=== PATIENT | male | born 1995 | race Caucasian/White ===

== ENCOUNTER 2019-04-26 05:32 | Inpatient (IN) | payer BC, SELFPAY ==
[2019-04-26] MEDS ORDERED: Clindamycin/D5W 900 mg/50 ml Premix Bag ONE (08:39)
[2019-04-26 09:08] LABS: #Basophils 0.1 thou/uL (0.0-0.2); #Eosinphils 0.2 thou/uL (0.0-0.7); #Lymphocytes 2.6 thou/uL (1.20-3.40); #Monocytes 0.9 thou/uL (0.11-0.59); #Neutrophils 7.7 thou/uL (1.40-6.50); %Basophils 0.6 % (0.0-1.0); %Eosinophils 1.9 % (0.0-10.0); %Lymphocytes 22.8 % (21.0-51.0); %Monocytes 7.7 % (0.0-10.0); Hemoglobin 16.1 g/dL (14.0-18.0); Mean Corpuscular HGB CONC 34.1 g/dL (32.0-36.0); Mean Corpuscular Hemoglobin 30.7 pg (27.0-31.0); Mean Platelet Volume 7.6 fL (7.4-10.4); Platelet Count 242 thou/uL (130-400); RBC Distribution Width 11.4 % (11.5-14.5); Red Blood Cell (RBC) Count 5.25 mill/uL (4.70-6.10); White Blood Cell (WBC) Count 11.4 thou/uL (4.8-10.8)
[2019-04-26 09:32] LABS: ALT (SGPT) 20 U/L (8-55); AST (SGOT) 20 U/L (5-34); Albumin 4.5 g/dL (3.5-5.0); Alkaline Phosphatase 102 U/L (40-110); Anion Gap 15 mmol/L (10-20); BUN (Urea Nitrogen) 12 mg/dL (8.9-20.6); Bilirubin, Total 0.3 mg/dL (0.2-1.2); Calc. Creatinine Clearance 0 mL/min (70-130); Calcium 10.1 mg/dL (7.8-10.44); Carbon Dioxide 24 mmol/L (22-29); Chloride 102 mmol/L (98-107); Estimated GFR-MDRD Greater than 90; Globulin 3.6 g/dL (2.4-3.5); Glucose 86 mg/dL (70-105); Potassium 3.7 mmol/L (3.5-5.1); Protein, Total 8.1 g/dL (6.0-8.3); Sodium 137 mmol/L (136-145)
[2019-04-26] MEDS ORDERED: Ketorolac Tromethamine 30 MG/ML VIAL ONE (10:28)
--- NOTE | 2019-04-26 10:44 | RAD ---
Chest one view HISTORY: Chest pain. FINDINGS: Cardiac silhouette and pulmonary vasculature are unremarkable. Mediastinum is midline. No c onfluent airspace consolidation or evidence of pneumothorax. IMPRESSION: No active cardiopulmonary abnormalities are demonstrated.
--- NOTE | 2019-04-26 11:59 | RAD ---
Left humerus 2 views HISTORY: Left arm injury. FINDINGS: Humerus is intact. No acute fracture, dislocation, or aggressive osseous erosions. No soft tissue gas is apparent. IMPRESSION: No acute osseous abnormalities are demonstrated.
--- NOTE | 2019-04-26 12:04 | RAD ---
RIGHT LEG TWO VIEWS: HISTORY: Spider bite to the right leg, right leg pain. FINDINGS: No bony abnormality is seen. No radiopaque foreign body is identified. No soft tissue air is seen. POS: [facility]
[2019-04-26] MEDS ORDERED: HYDROcodone/Acetaminophen 5/325 mg Tablet PO PRN ×2 (13:53)
[2019-04-26] MEDS ORDERED: Ondansetron ODT 4 MG TAB SL PRN (13:53)
[2019-04-26] MEDS ORDERED: Ondansetron PF 4 MG/2 ML Vial IVP PRN (13:53)
[2019-04-26] MEDS ORDERED: Acetaminophen 325 MG TAB PO PRN (13:53)
[2019-04-26 14:15] VITALS: BMI 23.1
[2019-04-26] MEDS: Sodium Chloride 0.9% 1,000 ML IV SCH ×2 (14:51→23:17)
[2019-04-26] MEDS ORDERED: Clindamycin/D5W 900 MG in Premix Bag 1 BAG IVPB SCH (15:00)
[2019-04-26] MEDS ORDERED: Acetaminophen/Codeine 30-300mg Tablet PO PRN (15:51)
--- NOTE | 2019-04-26 17:43 | HP ---
PRIMARY CARE PROVIDER: Dr. Aayush Olguin. CHIEF COMPLAINT: Redness of skin. HISTORY OF PRESENT ILLNESS: Mr. Thompson is a pleasant 23-year-old gentleman, who was seen at [facility] on April 26, 2019. He reports that he had a lesion over his left arm about 4 or 5 days ago. It started as a pimple, which popped. It then got bigger and started expanding in terms of area. Around that time, he also noticed the lesion over his right calf. He thinks it may have started as a spider bite. He actually did not see a spider. He reports feeling warm, but did not check his temperature. He denied any abdominal pain. He denied any neurologic symptoms. He came to the emergency room because of these lesions. He reports that he was able to express pus out of the lesion on his left arm. REVIEW OF SYSTEMS: All systems were reviewed and found to be negative except for the pertinent positives mentioned above. PAST MEDICAL HISTORY: None. PAST SURGICAL HISTORY: Tonsillectomy. PSYCHIATRIC HISTORY: The patient thinks that he may have been diagnosed with panic attacks. FAMILY HISTORY: His mother at age 38 from congestive heart failure. SOCIAL HISTORY: The patient smokes one pack of cigarettes a day. He denies alcohol use. He uses amphetamines, last use was this week. He denies any intravenous drug use. ALLERGIES: NO KNOWN DRUG ALLERGIES. CURRENT MEDICATIONS: None. PHYSICAL EXAMINATION: GENERAL: On examination, Mr. Thompson is awake and alert, not in acute distress. VITAL SIGNS: Blood pressure is 140/97, pulse 100, respiratory rate 19, and oxygen saturation 100% on room air. He is afebrile. EYES: No scleral icterus. No conjunctival pallor. ENT: Moist mucosal membranes. No oropharyngeal erythema or exudates. NECK: Supple, nontender, trachea is midline. RESPIRATORY: Accessory muscles of breathing are not active. Chest wall movements are symmetric bilaterally. LUNGS: Clear to auscultation without wheeze, rhonchi, or crepitations. CARDIOVASCULAR: S1 and S2 are heard, tachycardic and regular. Peripheral pulses palpable. No carotid bruit. No pericardial rub. ABDOMEN: Soft, nontender, bowel sounds heard, no hepatomegaly, no splenomegaly. NEUROLOGIC: Cranial nerves 2 through 12 are intact. No focal motor or sensory deficits. MUSCULOSKELETAL: Power is 5/5 in all 4 extremities. SKIN: Multiple tattoos. He has a 5 cm x 7 cm lesion over his anterior left arm. It is erythematous, warm to touch. There are openings. He also has an approximately 2 cm x 2 cm lesion over his right calf. The center of this lesion is raised. LYMPHATIC: No femoral lymphadenopathy. PSYCHIATRIC: Normal mood, normal affect. The patient is oriented to person, place, and time. LABORATORY DATA: Mr. Thompson's labs and investigations were reviewed. He has leukocytosis with 11,400 white cells, normal hemoglobin, normal platelet count, unremarkable comprehensive metabolic profile and normal troponin I. Lactic acid is normal. C-reactive protein is elevated at 5.02. ESR is normal at 11. ASSESSMENT AND PLAN: Mr. Thompson is a pleasant 23-year-old gentleman, who was seen at [facility] on April 26, 2019. His problem list includes: 1. Cellulitis: Mr. Thompson is presenting with cellulitis of the left upper extremity and right lower extremity. He had x-rays of the left humerus and right tibia/fibula, which were unremarkable. He has been started on clindamycin, which I will continue. We will also consult Infectious Disease Service for opinion and help with management. 2. Recreational drug use: The patient has been counseled regarding cessation of recreational drugs. 3. Tobacco abuse: The patient has been counseled regarding cessation of tobacco use. We will start him on nicotine replacement therapy. Many thanks for allowing me to participate in your patient's care. Please feel free to contact me with any questions or concerns. Please note that the blood cultures have been sent. LEVEL OF RISK: Moderate. LEVEL OF COMPLEXITY: Moderate. Job ID: [id number]
[2019-04-26] MEDS: Clindamycin/D5W 900 MG in Premix Bag 1 BAG IVPB SCH (21:36)
[2019-04-26 23:34] LABS: Amphetamine Detected (NotDetected); Barbiturates Screen Not Detected (NotDetected); Benzodiazepine Screen Not Detected (NotDetected); Cocaine Metabolite Screen Not Detected (NotDetected); Medtox Control Line Valid? VALID (VALID); Medtox Reader # READER 4; Methadone Not Detected (NotDetected); Methamphetamine Not Detected (NotDetected); Opiate Screen Not Detected (NotDetected); Oxycodone Screen Not Detected (NotDetected); Phencyclidine (PCP) Not Detected (NotDetected); THC/Cannabinoid Screen Detected (NotDetected); Tricyclic Screen Not Detected (NotDetected)
[2019-04-27] MEDS: Clindamycin/D5W 900 MG in Premix Bag 1 BAG IVPB SCH ×2 (05:39→13:31)
[2019-04-27] MEDS: Acetaminophen/Codeine 30-300mg Tablet PO PRN (13:36)
[2019-04-27 14:56] LABS: HIV (1/2) Antibody/Antigen Non-Reactive (NonReactive); HIV 1/2 INDEX 0.11 S/CO (<1.00); Hep C IgG Ab Non-Reactive (NonReactive); Hep C Index 0.07 S/CO (0-0.79); Syphilis Antibody Nonreactive (Nonreactive); Syphilis Antibody Index 0.05 S/CO (<1.00 Non-Reactive)
--- NOTE | 2019-04-27 15:08 | CON ---
DATE OF CONSULTATION: 04/27/2019 REASON FOR CONSULTATION: Abscess in the left arm. HISTORY OF PRESENT ILLNESS: A 23-year-old who has no past medical history of significance and developed an area of cellulitis with likely abscess in the left mid arm as well as an area of cellulitis in the right anterior leg skin. After admission and antimicrobial therapy, the leg process has reduced markedly. However, the left arm inflammatory process remains now with drainage of purulent exudate. He has moderate pain there. He has no headaches, visual symptoms, sore throat, odynophagia, dysphagia, no dyspnea or cough. No sputum production. No abdominal pain or diarrhea. No genitourinary symptoms. No joint symptoms or neurological symptoms. MEDICAL HISTORY: Tonsillectomy. There is some element of anxiety. SOCIAL HISTORY: He smokes daily. Denies any IV drug use. He lives in [place]. ALLERGIES: NONE. FAMILY HISTORY: Noncontributory. CURRENT MEDICATIONS: Clindamycin. PHYSICAL EXAMINATION: VITAL SIGNS: T-max 98.2, blood pressure 120/70, pulse 86, respirations 20, O2 saturation 99. SKIN: Shows the area of erythema in the left arm with a bulging mass like prominence, which is moderate to markedly tender. In the center aspect of this area, there is a small opening with purulent drainage. A sample was submitted for cultures. There are multiple tattoos. LYMPH: No lymphadenopathy. HEENT: Noncontributory. NECK: Supple. No jugular vein distention. LUNGS: Symmetric, clear breath sounds. HEART: S1, S2. Regular rate. No S3 or S4. ABDOMEN: Soft, not distended or tender. No ascites. No bladder distention. EXTREMITIES: No joint inflammatory activity. NEUROLOGIC: Nonfocal including cognitive function. LABORATORY DATA: White cell count 11.4, hemoglobin 16, platelets 242 with normal differential. Chemistry was normal. CRP is 5.02, globulin 3.6. There is amphetamines and cannabinoids detected in his toxic screen. Microbiology, negative blood cultures. There are a number of x-rays including tibia-fibula, humerus, chest x-ray and all were within normal limits. ASSESSMENT: Abscess/cellulitis, left arm, probably secondary to Staphylococcus aureus, possibly methicillin-resistant Staphylococcus aureus. Submit cultures from purulence. Consult Surgery for I and D and switch him to IV vancomycin for now. The cultures will be followed and then adjust antimicrobial therapy accordingly. Should be able to go home right after surgical debridement on oral antimicrobial therapy hopefully tomorrow. Job ID: [id number]
[2019-04-27] MEDS: Vancomycin HCl 1.75 GM in Sodium Chloride 0.9% 500 ML IVPB SCH (16:12)
--- NOTE | 2019-04-27 19:58 | PDOC.EVN ---
Event Note - Event Note Event Note: Nurse reports patient is having some itching with the Vanc. Initial dose was started slowly, second a little faster, but started itching. That nurse thought there might be some redness behind one ear, so it was slowed. Still infusing now and next dose is due. Will give some Benadryl and delay the dose for a few min. If he develops any objective findings otherwise, will DC the Vanc. Day team can determine if changes need to be made otherwise. On Vanc per ID recs. Possibility of MRSA cellulitis.
[2019-04-27] MEDS: Saccharomyces boulardii 250 MG CAP PO SCH (20:08)
[2019-04-27] MEDS: diphenhydrAMINE 25 MG CAP PO PRN (20:33)
[2019-04-27] MEDS ORDERED: Vancomycin HCl 1.25 GM in Sodium Chloride 0.9% 250 ML 300 ML IVPB SCH (21:00)
[2019-04-28] MEDS: Vancomycin HCl 1.75 GM in Sodium Chloride 0.9% 500 ML IVPB SCH ×3 (00:10→16:39)
[2019-04-28] MEDS: diphenhydrAMINE 25 MG CAP PO PRN ×2 (02:40→10:39)
--- NOTE | 2019-04-28 07:55 | PDOC.HOSPP ---
- Subjective Encounter Date: 04/27/19 Encounter Time: 11:30 Subjective: Patient seen and examined for LUE cellulitis/abscess. LUE pain +. No overnight events - Objective Vital Signs & Weight: Vital Signs (12 hours) Temp Pulse Resp BP BP Pulse Ox 04/28/19 07:41 97.9 F 81 18 131/84 98 04/28/19 04:00 97.8 F 97 18 130/88 97 04/28/19 00:33 98.3 F 110 H 21 H 138/84 96 04/27/19 20:00 98.3 F 93 18 139/83 97 Weight Weight 195 lb I&O: 04/27/19 04/28/19 04/29/19 06:59 06:59 06:59 Intake Total 100 150 Balance 100 150 Result Diagrams: 04/26/19 08:56 04/26/19 08:56 Radiology Reviewed by me: Yes (XR - neg) Hospitalist ROS - Review of Systems Cardiovascular: denies: chest pain, palpitations, orthopnea, paroxysmal noc. dyspnea, edema, light headedness, other Gastrointestinal: denies: nausea, vomiting, abdominal pain, diarrhea, constipation, melena, hematochezia, other - Medication Medications: Active Medications Generic Name Dose Route Start Last Admin Trade Name Freq PRN Reason Stop Dose Admin Acetaminophen/Codeine Phosphate 2 tab 04/26/19 15:51 04/27/19 13:36 Tylenol #3 PO 2 tab Q6H PRN Administration Moderate Pain (4-7) Diphenhydramine HCl 25 mg 04/27/19 19:53 04/28/19 02:40 Benadryl PO 25 mg Q4H PRN Administration Itching Vancomycin HCl 1.75 gm/ Sodium 500 mls @ 250 mls/hr 04/27/19 16:00 04/28/19 00:10 Chloride IVPB Not Given 0800,1600,2359 ARUN Saccharomyces Boulardii 250 mg 04/27/19 21:00 04/27/19 20:08 Florastor PO 250 mg HS ARUN Administration - Exam General Appearance: NAD Heart: RRR, no gallops Respiratory: CTAB, no rales Gastrointestinal: soft, non-tender, normal bowel sounds Extremities: no cyanosis Extremities - other findings: Erythema/swelling/warmth LUE Hosp A/P - Plan DVT proph w/SCDs LUE cellulitis/abscess Tobacco dep Cannabis abuse PLAN: Cont IV Clindamycin Await ID input Consult wound care
[2019-04-28] MEDS ORDERED: Midazolam HCl 2 mg/2 ml Vial ONE (09:21)
[2019-04-28] MEDS ORDERED: Fentanyl 100 MCG/2 ML VIAL ONE (09:21)
[2019-04-28] MEDS ORDERED: Bupivacaine HCl 0.5%/Epinephrine 1:200,000/PF 30 ml Vial ONE (09:40)
[2019-04-28] MEDS ORDERED: Ondansetron HCl/PF 4 MG/2 ML Vial IVP PRN (09:51)
[2019-04-28] MEDS ORDERED: Promethazine HCl 25 MG/ML VIAL SLOW IVP PRN (09:51)
[2019-04-28] MEDS ORDERED: Promethazine HCl 25 MG/ML VIAL IM PRN (09:51)
[2019-04-28] MEDS ORDERED: Ibuprofen 800 MG TAB PO PRN (09:59)
[2019-04-28] MEDS ORDERED: traMADol HCl 50 MG TAB PO PRN ×2 (10:00)
--- NOTE | 2019-04-28 10:21 | OP ---
DATE OF PROCEDURE: 04/28/2019 PREOPERATIVE DIAGNOSIS: Left upper arm abscess. POSTOPERATIVE DIAGNOSIS: Left upper arm abscess. PROCEDURE PERFORMED: Incision and drainage of left upper arm abscess. ANESTHESIA: Monitored anesthesia care and local. INDICATIONS FOR PROCEDURE: A 23-year-old man, presented with worsening painful flocculent left upper arm mass. Clinical examination was consistent with acute left upper arm abscess. The patient was brought to the operating room for incision and drainage. DESCRIPTION OF PROCEDURE: Informed consent was obtained. The patient was brought to the operating room and placed in supine position. Following monitored anesthesia care, the left upper arm sterilely prepped and draped in usual fashion. The skin was anesthetized with 1% lidocaine over the dome of the abscess. Crucifix incision was made over the dome of the abscess. Using a hemostat, the abscess cavity was entered. The cultures were taken. Abscess cavity was irrigated clear with saline and packed with 1 inch plain gauze strip. Sterile dressings were applied. The patient tolerated this procedure without any apparent complication, and he was returned to recovery room in satisfactory condition. Job ID: [id number]
[2019-04-28 16:09] LABS: Vancomycin, Trough 4.9 ug/mL
[2019-04-28] MEDS: Saccharomyces boulardii 250 MG CAP PO SCH (20:42)
[2019-04-28] MEDS: Acetaminophen/Codeine 30-300mg Tablet PO PRN (22:28)
[2019-04-29] MEDS: diphenhydrAMINE 25 MG CAP PO PRN (00:07)
[2019-04-29] MEDS: Vancomycin HCl 1.75 GM in Sodium Chloride 0.9% 500 ML IVPB SCH ×2 (00:08→08:37)
[2019-04-29] MEDS ORDERED: Aripiprazole 10 MG TAB PO SCH (03:00)
[2019-04-29 07:56] VITALS: BP 125/73; TEMP 97.4
--- NOTE | 2019-04-29 09:08 | PDOC.HOSPP ---
- Subjective Encounter Date: 04/28/19 Encounter Time: 13:00 Subjective: Patient seen and examined for LUE abscess. s/p I&D. No new complaints. No overnight events - Objective Vital Signs & Weight: Vital Signs (12 hours) Temp Pulse Resp BP Pulse Ox 04/29/19 07:44 97.4 F L 72 16 125/73 97 04/29/19 05:22 97.5 F L 74 16 117/77 95 04/29/19 00:32 98.0 F 94 18 120/80 Weight Admit Weight 195 lb Weight 195 lb I&O: 04/28/19 04/29/19 04/30/19 06:59 06:59 06:59 Intake Total 150 Balance 150 Result Diagrams: 04/26/19 08:56 04/26/19 08:56 Hospitalist ROS - Review of Systems Cardiovascular: denies: chest pain, palpitations, orthopnea, paroxysmal noc. dyspnea, edema, light headedness, other Gastrointestinal: denies: nausea, vomiting, abdominal pain, diarrhea, constipation, melena, hematochezia, other - Medication Medications: Active Medications Generic Name Dose Route Start Last Admin Trade Name Freq PRN Reason Stop Dose Admin Acetaminophen/Codeine Phosphate 2 tab 04/26/19 15:51 04/28/19 22:28 Tylenol #3 PO 2 tab Q6H PRN Administration Moderate Pain (4-7) Diphenhydramine HCl 25 mg 04/27/19 19:53 04/29/19 00:07 Benadryl PO 25 mg Q4H PRN Administration Itching Vancomycin HCl 1.75 gm/ Sodium 500 mls @ 250 mls/hr 04/27/19 16:00 04/29/19 08:37 Chloride IVPB 500 mls 0800,1600,2359 ARUN Administration Saccharomyces Boulardii 250 mg 04/27/19 21:00 04/28/19 20:42 Florastor PO 250 mg HS ARUN Administration Tramadol HCl 100 mg 04/28/19 10:00 04/28/19 17:41 Ultram PO 100 mg Q6H PRN Administration Severe Pain (7-10) - Exam General Appearance: NAD Heart: RRR, no gallops Respiratory: CTAB, no rales Gastrointestinal: soft, non-tender, normal bowel sounds Extremities: no edema Hosp A/P - Plan DVT proph w/SCDs LUE cellulitis/abscess Tobacco dep Cannabis abuse PLAN: Cont IV Vancomycin s/p I&D Pain control Cont wound care
[2019-04-29] MEDS: Acetaminophen/Codeine 30-300mg Tablet PO PRN (09:43)
--- NOTE | 2019-04-29 10:30 | PDOC.GSPN ---
Surgery Progress Note: Subj - Subjective Narrative: Patient is a 23 yo M s/p I&D of SHIREEN abscess, post-OP day one. Reports moderate pain with movement of SHIRENE and palpation of wound site. Denies fevers, chills, n/ v, uncontrolled pain, large wound bleeding or drainage. No acute events overnight. Packing removed and changed today with nurse at bedside. Surgery Progress Note: Obj - Vital signs Vital signs: Vital Signs - Most Recent Temp Pulse Resp BP Pulse Ox 97.4 F L 72 16 125/73 97 04/29/19 07:44 04/29/19 07:44 04/29/19 07:44 04/29/19 07:44 04/29/19 07:44 - Physical Exam General: no distress, well developed, well nourished Cardiovascular: regular rate and rhythm, no murmur Respiratory: clear to auscultation, normal expansion, normal respiratory effort , breath sounds present Wound: dressing clean,dry,intact, packing in place, other Additional exam: Dressing and packing removed and changed at bedside with nurse. Repacked with 0.5 inch normal packing, overlayed with gauze and wrapped with Kerlix Surgery Progress Note: Results - Labs Result Diagrams: 04/26/19 08:56 04/26/19 08:56 Surgery Progress Note: A/P - Problem (1) Abscess of left upper extremity Current Visit: Yes Code(s): L02.414 - CUTANEOUS ABSCESS OF LEFT UPPER LIMB Status: Acute Assessment and Plan: ASSESSMENT: Patient is s/p operative I&D of SHIREEN abscess, post-op day 1. Doing well, no acute events overnight. Packing removed, wound evaluated and looks healthy and healing well. Repacked with 0.5 inch regular packing and wrapped with gauze. PLAN: Patient is ready for discharge from a surgical standpoint. Will need daily dressing changes from nursing staff or by self at home. Surgery will sign off and defer further care to primary team
--- NOTE | 2019-04-29 15:08 | PRG ---
DATE OF SERVICE: 04/29/2019 He did not sleep very well last night prior to thinking of leaving against medical advice, but changes his mind. A bit of pain in the left upper extremity. No respiratory symptoms, abdominal pain, or diarrhea. No genitourinary symptoms. Vital signs are normal. The operative report was reviewed, and the patient had I and D of the abscess cavity irrigated. Cultures have yielded methicillin-sensitive Staph aureus. ASSESSMENT AND DISCUSSION: Multiple skin abscesses due to methicillin-susceptible Staphylococcus aureus. The patient is eligible for discharge planning on oral Keflex 500 three times a day for about 10 days There is risk of recurrence of those and if those recurred, then I would recommend decolonization with doxycycline and rifampin in the outpatient setting. Job ID: [id number]
[2019-04-30] MEDS ORDERED: Aripiprazole 10 MG TAB PO SCH (09:00)
--- NOTE | 2019-04-30 12:13 | PQF ---
[employer] Flatbed [employer] Crystal Reports Winform ViewerMacik Mat Tinajero PATIENCE BLOCK [id number] CLINICAL DOCUMENTATION CLARIFICATION FORM: POST DISCHARGE Addendum to original discharge summary date: ____ Late entry note date: __ DATE:04/30/2019 ATTN:PATIENCE BLOCK Please exercise your independent, professional judgment in responding to the clarification form. Clinical indicators are provided on the bottom of this form for your review Please check appropriate box(s): [ x ] Incision and Drainage : Depth:[ ] Skin [x ] Subcutaneous [ ] Fascia [ ] Muscle [ ] Tendon [ ] Bone [ ] Other procedure diagnosis [ ] Unable to determine For continuity of documentation, please document condition throughout progress notes and discharge summary. Thank You. CLINICAL INDICATORS - SIGNS / SYMPTOMS / LABS - Incision and drainage of left upper arm abscess- OP report, 04/28, PATIENCE BLOCK MD - The skin was anesthetized with 1% lidocaine over the dome of the abscess-OP report, 04/28, PATIENCE BLOCK MD - Crucfix incision was made over the dome of the abscess-OP report, 04/28, PATIENCE BLOCK MD - Using a hemostat, the abscess cavity was entered-OP report, 04/28, PATIENCE BLOCK MD - Abscess cavity irrigated clear with saline-OP report, 04/28, PATIENCE BLOCK MD RISK FACTORS - Left upper arm abscess-OP report, 04/28, PATIENCE BLOCK MD TREATMENTS: - Incision and drainage -OP report, 04/28, PATIENCE BLOCK MD - Vancomycin.IV-SEP, 04/26 (This form is maintained as a part of the permanent medical record) 2014 [employer]. All Rights Reserved [employer] [place] [not provided] [not provided] MTDD
--- NOTE | 2019-04-30 14:13 | DIS ---
DATE OF ADMISSION: 04/26/2019 DATE OF DISCHARGE: 04/29/2019 DISCHARGE DISPOSITION: Home. FOLLOWUP: Follow up with primary care physician at [facility] in 1 week. ALLERGIES: NO KNOWN DRUG ALLERGIES. DISCHARGE MEDICATIONS: Keflex 500 mg every 6 hourly for next 10 days. All other home medications were left unchanged. The patient was seen and examined on the day of discharge. Denies any new complaints. No chest pain, shortness of breath, or palpitations reported. BRIEF HOSPITAL COURSE: The patient is a 23-year-old male, who presented to the emergency room with left upper extremity redness and pain. His workup was consistent with left upper extremity cellulitis with abscess. He underwent incision and drainage on [address] Robles. His cultures were positive for staphylococcus, methicillin sensitive. He has been cleared by Infectious Disease for discharge. FINAL DIAGNOSES: 1. Left upper extremity cellulitis with abscess secondary to methicillin-sensitive Staphylococcus. 2. Tobacco dependence. The patient was counseled. 3. Cannabis abuse. Plan of care was discussed with the patient in detail. He stated understanding. Job ID: [id number]
--- NOTE | 2019-05-02 13:15 | EKG ---
Test Reason : Blood Pressure : / mmHG Vent. Rate : 092 BPM Atrial Rate : 092 BPM P-R Int : 150 ms QRS Dur : 094 ms QT Int : 364 ms P-R-T Axes : 059 070 050 degrees QTc Int : 450 ms Normal sinus rhythm Normal ECG Confirmed by NATHALIA TOMAS MD ([id number]), video effects editor JAI GALDAMEZ ([id number]) on 05/02/2019 1:14:48 PM Referred By: Confirmed By:NATHALIA TOMAS MD
== END 2019-04-29 15:42 | disposition home or self-care (01) | DRG 581 ==
LOC: ERS 05:32 → OBSVTOIN 11:30 → T4-B 11:30
PROVIDERS: ADMIT Internal Medicine; ATTEND Internal Medicine
PROC: 0J9F0ZZ Drainage of Left Upper Arm Subcutaneous Tissue and Fascia, Open Approach (ICD-10-PCS; principal; 2019-04-28)
DX: L02.414 Cutaneous abscess of left upper limb (principal); F41.9 Anxiety disorder, unspecified; F32.9 Major depressive disorder, single episode, unspecified; F17.210 Nicotine dependence, cigarettes, uncomplicated; B95.61 Methicillin susceptible Staphylococcus aureus infection as the cause of diseases classified elsewhere; F12.10 Cannabis abuse, uncomplicated; L03.114 Cellulitis of left upper limb; W57.XXXA Bitten or stung by nonvenomous insect and other nonvenomous arthropods, initial encounter
CPT/HCPCS: 36415; 71045; 80053; 80202; 80306; 83605; 84484; 85025; 85652; 86140; 86780; 86803; 87040; 87070; 87077; 87186; 87205; 87389; 93005; 96365; 96375; J0670; J1885; J2250; J3010; J3370; J3490; J7050; Q0163

== ENCOUNTER 2019-12-20 04:40 | Emergency (ER) | payer SELFPAY ==
[2019-12-20] MEDS ORDERED: Ketorolac Tromethamine 30 MG/ML VIAL ONE (05:58)
[2019-12-20] MEDS ORDERED: Iopamidol-370 76% 500 ML 1 ML ONE (08:54)
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
--- NOTE | 2019-12-20 12:53 | RAD ---
LEFT FEMUR FOUR VIEWS: History: Injury. FINDINGS: No evidence of fracture identified. No osseous abnormalities. IMPRESSION: No acute findings. POS: [facility]
--- NOTE | 2019-12-20 12:54 | RAD ---
LEFT KNEE FOUR VIEWS: Indications: Knee injury. FINDINGS: Joint spaces are normally maintained. No fracture or osseous abnormality. No evidence of joint effusi on. IMPRESSION: No acute finding. POS: [facility]
== END 2019-12-20 06:15 | disposition home or self-care (01) ==
LOC: ERS 04:40
DX: M25.562 Pain in left knee (principal); M54.9 Dorsalgia, unspecified; F41.9 Anxiety disorder, unspecified; F32.9 Major depressive disorder, single episode, unspecified; F17.210 Nicotine dependence, cigarettes, uncomplicated; V89.2XXA Person injured in unspecified motor-vehicle accident, traffic, initial encounter
CPT/HCPCS: 71260; 74177; J1885; Q9967

== ENCOUNTER 2020-09-12 16:53 | Emergency (ER) | payer SELFPAY ==
--- NOTE | 2020-09-12 17:20 | RAD ---
XR Hand Rt 3 View STANDARD HISTORY: Injury, right hand pain FINDINGS: There is a nondisplaced comminuted fracture involving the base of the fifth metacarpal.
[2020-09-12] MEDS ORDERED: Bacitracin 1 PK ONE (18:07)
== END 2020-09-12 18:22 | disposition home or self-care (01) ==
LOC: ERS 16:53
DX: S62.346A Nondisplaced fracture of base of fifth metacarpal bone, right hand, initial encounter for closed fracture (principal); W22.8XXA Striking against or struck by other objects, initial encounter; F17.210 Nicotine dependence, cigarettes, uncomplicated
CPT/HCPCS: 29125

== ENCOUNTER 2020-12-06 06:40 | Emergency (ER) | payer SELFPAY ==
[2020-12-06] MEDS ORDERED: Lorazepam 2 MG/ML VIAL ONE (07:00)
[2020-12-06 07:15] LABS: #Basophils 0.1 thou/uL (0.0-0.2); #Eosinphils 0.1 thou/uL (0.0-0.7); #Lymphocytes 2.2 thou/uL (1.20-3.40); #Monocytes 0.9 thou/uL (0.11-0.59); #Neutrophils 5.2 thou/uL (1.40-6.50); %Basophils 0.8 % (0.0-1.0); %Eosinophils 1.2 % (0.0-10.0); %Lymphocytes 26.2 % (21.0-51.0); %Monocytes 10.6 % (0.0-10.0); %Neutrophils 61.2 % (42.0-75.0); Hemoglobin 15.1 g/dL (14.0-18.0); Mean Corpuscular HGB CONC 34.6 g/dL (32.0-36.0); Mean Corpuscular Volume 89.6 fL (78.0-98.0); Mean Platelet Volume 7.7 fL (7.4-10.4); Platelet Count 214 thou/uL (130-400); RBC Distribution Width 11.7 % (11.5-14.5); Red Blood Cell (RBC) Count 4.88 mill/uL (4.70-6.10); White Blood Cell (WBC) Count 8.5 thou/uL (4.8-10.8)
[2020-12-06 07:40] LABS: ALT (SGPT) 61 U/L (8-55); AST (SGOT) 29 U/L (5-34); Acetaminophen Less than 6.0 mcg/mL (10.0-30.0); Albumin 4.6 g/dL (3.5-5.0); Alcohol Less than 10 mg/dL (Less than 10); Alkaline Phosphatase 99 U/L (40-110); Anion Gap 13 mmol/L (10-20); BUN (Urea Nitrogen) 18 mg/dL (8.9-20.6); Bilirubin, Total 1.2 mg/dL (0.2-1.2); Calc. Creatinine Clearance 0 mL/min (70-130); Calcium 9.9 mg/dL (7.8-10.44); Carbon Dioxide 28 mmol/L (22-29); Chloride 103 mmol/L (98-107); Globulin 3.3 g/dL (2.4-3.5); Glucose 82 mg/dL (70-105); Potassium 3.8 mmol/L (3.5-5.1); Protein, Total 7.9 g/dL (6.0-8.3); Salicylate Less than 8.0 mg/dL (15.0-30.0); Sodium 140 mmol/L (136-145)
[2020-12-06 09:15] LABS: Bacteria/HPF None Seen HPF (None Seen); Bilirubin Negative (Negative); Blood, Urine Negative (Negative); Clarity Clear (Clear); Glucose, Urine (Dipstick) Normal (Negative); Ketone, Urine 40 mg/dL (Negative); Leukocyte Negative Leu/uL (Negative); Nitrite Negative (Negative); Protein, Urine (Dipstick) 70 mg/dL (Neg-Trace); RBC/HPF 0-3 HPF (0-3); Squamous Epithelial None Seen HPF (0-3); Urobilinogen Normal mg/dL (Less than 2)
[2020-12-06 09:17] LABS: Sperm/HPF Rare HPF (None Seen)
[2020-12-06 09:20] LABS: Amphetamine Detected (NotDetected); Barbiturates Screen Not Detected (NotDetected); Benzodiazepine Screen Not Detected (NotDetected); Cocaine Metabolite Screen Not Detected (NotDetected); Medtox Control Line Valid? VALID (VALID); Medtox Reader # READER 1; Methadone Not Detected (NotDetected); Methamphetamine Detected (NotDetected); Opiate Screen Not Detected (NotDetected); Oxycodone Screen Not Detected (NotDetected); Phencyclidine (PCP) Not Detected (NotDetected); THC/Cannabinoid Screen Detected (NotDetected); Tricyclic Screen Not Detected (NotDetected)
== END 2020-12-06 12:42 | disposition home or self-care (01) ==
LOC: ERS 06:40
DX: F15.10 Other stimulant abuse, uncomplicated (principal); I10 Essential (primary) hypertension; F17.210 Nicotine dependence, cigarettes, uncomplicated
CPT/HCPCS: 36415; 80053; 80306; 80307; 81003; 81015; 84443; 85025; 93005; 96372; J2060